=== PATIENT | male | born 1945 | race Caucasian/White ===

== ENCOUNTER 2017-03-16 18:32 | Emergency (ER) | payer MEDICARE, BC ==
[2017-03-16] MEDS ORDERED: amLODIPine TAB* 5 MG PO ONE (19:27)
[2017-03-16 19:41] LABS: ABS Basophils 0 10^3/ul (0-0.2); ABS Eosinophils 0.5 10^3/ul (0-0.6); ABS Lymphocytes 2.7 10^3/ul (1.0-4.8); ABS Monocytes 0.9 10^3/ul (0-0.8); ABS Neutrophils 4.5 10^3/ul (1.5-7.7); ABS Nucleated RBC 0 10^3/ul; Eosinophil % 6.2 % (0-6); Hematocrit 43 % (42-52); Hemoglobin 15.3 g/dl (14.0-18.0); Mean Corpuscular HGB Conc 35 g/dl (31-36); Mean Corpuscular Hemoglobin 33 pg (27-31); Mean Corpuscular Volume 95 fL (80-94); Mean Platelet Volume 7 um3 (7.4-10.4); Nucleated Red Blood Cells % 0.1; Platelet Count 237 10^3/ul (150-450); Red Blood Count 4.59 10^6/ul (4.0-5.4); Red Cell Distribution Width 13 % (10.5-15); White Blood Count 8.8 10^3/ul (3.5-10.8)
[2017-03-16 19:56] LABS: EGFR Non-African American 71.8 (>60)
[2017-03-16 21:21] VITALS: BP 167/68
--- NOTE | 2017-03-16 21:35 | ED ---
Anjali Yuen Thomas, scribed for Keon Ivy on 03/16/17 at 1926 . Hypertension - HPI Summary HPI Summary: The patient is a 71 year old male presenting to the emergency department complaining of elevated blood pressure measured at 228/75 in triage. The patient s blood pressure is typically 130s-140s systolic. He is on Amlodipine, hydrochlorothiazide, and ASA. He does admit to having white coat syndrome. The patient has treated the symptoms with an unspecified tranquilizer prior to arrival. He complains of some neck pain and body aches that he attributes to hiking yesterday. The patient denies chest pain and shortness of breath. - History of Current Complaint Chief Complaint: EDHypertension Stated Complaint: HIGH BLOOD PRESSURE Time Seen by Provider: 03/16/17 19:15 Hx Obtained From: Patient Onset/Duration: Started Hours Ago - earlier today, Still Present Timing: Constant Alleviating Factor(s): Other - Patient took tranquilizer prior to arrival Associated Signs & Symptoms: Negative - SOB, CP Current Medications: Other - ASA, amlodipine, hydrochlorothiazide - Allergies/Home Medications Allergies/Adverse Reactions: Allergies Allergy/AdvReac Type Severity Reaction Status Date / Time No Known Allergies Allergy Verified 11/19/12 19:23 PMH/Surg Hx/FS Hx/Imm Hx Cardiovascular History: Reports: Hx Hypercholesterolemia, Hx Hypertension EENT History: Reports: Hx Hearing Problem Infectious Disease History: No Infectious Disease History: Denies: Traveled Outside the [place] in Last 30 Days - Family History Known Family History: Negative: Hypertension - Social History Lives: With Family Alcohol Use: Weekly Substance Use Type: Reports: None Hx Tobacco Use: No Smoking Status (MU): Never Smoked Tobacco Review of Systems Negative: Fever Negative: Chest Pain Negative: Shortness Of Breath Positive: Other - Body aches, neck pain All Other Systems Reviewed And Are Negative: Yes Physical Exam - Summary Physical Exam Summary: Appearance: Well appearing, no pain distress Skin: warm, dry, reflects adequate perfusion Head/face: normal Eyes: EOMI, MALVIN ENT: normal Neck: supple, non-tender Respiratory: CTA, breath sounds present Cardiovascular: RRR, pulses symmetrical Abdomen: non-tender, soft Bowel: present Musculoskeletal: normal, strength/ROM intact Neuro: normal, sensory motor intact, A&Ox3 Triage Information Reviewed: Yes Vital Signs On Initial Exam: Initial Vitals Temp Pulse Resp BP Pulse Ox 99.0 F 74 18 228/75 99 03/16/17 18:36 03/16/17 18:36 03/16/17 18:36 03/16/17 18:36 03/16/17 18:36 Vital Signs Reviewed: Yes Diagnostics - Vital Signs Vital Signs Temp Pulse Resp BP Pulse Ox 03/16/17 18:36 99.0 F 74 18 228/75 99 - Laboratory Result Diagrams: 03/16/17 19:30 03/16/17 19:30 Lab Statement: Any lab studies that have been ordered have been reviewed, and results considered in the medical decision making process. - EKG 20:00 Cardiac Rate: NL EKG Rhythm: Sinus Rhythm - at 62 BPM EKG Interpretation: No acute changes. Hypertension Course/Dx - Course Assessment/Plan: The patient is a 71 year old male presenting to the emergency department complaining of elevated blood pressure measured at 228/75 in triage. In the ED course the patient was given amlodipine. Bloodwork was obtained. EKG shows sinus rhythm with no acute changes. The patient is diagnosed with hypertension. The patient is instructed to follow up with primary care tomorrow. - Diagnoses Provider Diagnoses: Hypertension Discharge - Discharge Plan Condition: Stable Disposition: HOME Patient Education Materials: Hypertension (ED) Referrals: Berry Arriaza MD [Primary Care Provider] - 1 Day Additional Instructions: Follow up with your primary care physician at your appointment scheduled tomorrow. Return to the emergency department for any new or worsening symptoms. The documentation as recorded by the Anjali degroot Thomas accurately reflects the service I personally performed and the decisions made by Biju ca Emmanuel.
== END 2017-03-16 21:22 | disposition home or self-care (01) ==
LOC: ED 18:32
DX: I10 Essential (primary) hypertension (principal)
CPT/HCPCS: 36415; 80053; 82550; 84484; 85025; 93005; 99282; A9270-GY

== ENCOUNTER 2018-01-19 11:36 | Inpatient (IN) | payer MEDICARE, BC ==
--- NOTE | 2018-01-19 14:17 | ED ---
Shortness of Breath - HPI Summary HPI Summary: Patient is a 72 y/o M w/ c/o SOB and fatigue with exertion. He states that he was carrying a ~18 lbs box of recyclables to his garage. As he returned to his house, he states he was SOB and felt tired. Patient measured his BP himself to be 160s/100s and HR to be 95. He claims his typical HR is between 45-55 BPM. In room, patient has pulse of 120. While lying down in the stretcher, patient states he feels "fine". Patient reports no Sx while walking from his car to ED. Fever, chills, coughing is denied. He reports some palpitations recently, denies pain/swelling in legs but notes some weakness in legs. He notes that he is physically active, claims he goes hiking x3 a week and exercises with 15 lbs weights. Patient states that the last time he went hiking he was somewhat SOB as well. PMHx of respiratory problems is denied. PMHx of raynauds. On triage, pain is denied, nothing is noted to aggravate/alleviate Sx. Home medications and allergies are reviewed. - History of Current Complaint Chief Complaint: EDWeakness Time Seen by Provider: 01/19/18 12:58 Hx Obtained From: Patient Onset/Duration: Lasting Hours - SOB and fatigue with exertion episode this morning, Resolved - states he is fine while lying in stretcher Timing: Intermittent Episodes Lasting: Current Severity: None Dyspnea At: Exertion Aggrevating Factors: Nothing Alleviating Factors: Nothing Associated Signs & Symptoms: Negative - Allergy/Home Medications Allergies/Adverse Reactions: Allergies Allergy/AdvReac Type Severity Reaction Status Date / Time No Known Allergies Allergy Verified 11/19/12 19:23 Home Medications: Home Medications Diazepam TAB(*) [Valium TAB(*)] 5 mg PO BID PRN 01/19/18 [History Confirmed 06/03] Hydrochlorothiazide TAB* [Hydrodiuril TAB*] 25 mg PO DAILY 01/19/18 [History Confirmed 01/19/18] amLODIPine TAB* [Norvasc 5 mg TAB*] 2.5 mg PO DAILY 01/19/18 [History Confirmed 01/19/18] PMH/Surg Hx/FS Hx/Imm Hx Cardiovascular History: Reports: Hx Hypercholesterolemia, Hx Hypertension Sensory History: Reports: Hx Hearing Problem Infectious Disease History: No Infectious Disease History: Denies: Traveled Outside the [place] in Last 30 Days - Family History Known Family History: Negative: Hypertension - Social History Alcohol Use: Weekly Substance Use Type: Reports: None Hx Tobacco Use: No Smoking Status (MU): Never Smoked Tobacco Review of Systems Positive: Fatigue. Negative: Fever, Chills Positive: Palpitations Positive: Shortness Of Breath. Negative: Cough Positive: Other - NEGATIVE: BLE PAIN . Negative: Edema Positive: Weakness - BLE All Other Systems Reviewed And Are Negative: Yes Physical Exam - Summary Physical Exam Summary: Appearance: Well-appearing, Well-nourished, lying in bed comfortably Skin: Warm, dry, no obvious rash Eyes: sclera anicteric, no conjunctival pallor ENT: mucous membranes moist, pharynx appears normal Neck: Supple, nontender Respiratory: Clear to auscultation, no signs of respiratory distress Cardiovascular: Tachycardic; Normal S1, S2. No murmurs. Normal distal pulses in tibial and radial bilaterally. Abdomen: Soft, nontender, normal active bowel sounds present Musculoskeletal: Normal, Strength/ROM Intact Neurological: A&Ox3, awake and alert, mentation is normal, speech is fluent and appropriate Psychiatric: affect is normal, does not appear anxious or depressed Triage Information Reviewed: Yes Vital Signs On Initial Exam: Initial Vitals Temp Pulse Resp BP Pulse Ox 98.1 F 110 18 165/122 95 01/19/18 11:40 01/19/18 11:40 01/19/18 11:40 01/19/18 11:40 01/19/18 11:40 Vital Signs Reviewed: Yes Diagnostics - Vital Signs Vital Signs Temp Pulse Resp BP Pulse Ox 01/19/18 11:40 98.1 F 110 18 165/122 95 - Laboratory Result Diagrams: 01/20/18 04:28 01/19/18 18:00 Lab Statement: Any lab studies that have been ordered have been reviewed, and results considered in the medical decision making process. - Radiology CXR Radiology Interpretation Completed By: Radiologist Summary of Radiographic Findings: CXR IMPRESSION: THERE IS THE APPEARANCE OF AN ASYMMETRIC 2.8 CM DENSITY OVERLYING THE RIGHT HILUM RELATIVE. TO THE LEFT. THIS MAY SIMPLY BE A CONFLUENCE OF HILAR VESSELS BUT THERE ARE NO PRIOR CHEST. X-RAYS AVAILABLE FOR COMPARISON TO COMMENT ON CHRONICITY. SUPERIOR CHARACTERIZATION CAN BE. MADE WITH CT OF THE CHEST PARTICULARLY IF THE PATIENT IS SYMPTOMATIC AND/OR HAS RISK. FACTORS FOR NEOPLASM. THIS REPORT WAS REVIEWED BY ED PHYSICIAN. - CT CTA CHEST/THORAX CT Interpretation Completed By: Radiologist Summary of CT Findings: CTA CHEST/THORAX IMPRESSION: Multiple large pulmonary emboli are noted. Right main pulmonary artery filling. defects are noted as well as left lower lobe pulmonary artery filling defects are noted. This report was reviewed by ED physician. - EKG 1255 Cardiac Rate: Tachycardia - rate of 109 BPM EKG Rhythm: Sinus Tachycardia Summary of EKG Findings: Sinus tachycardia at 109 BPM, P waves, QRS complex, and T waves are within normal limits, T waves and intervals are normal, no ischemic changes. Re-Evaluation - Re-Evaluation First Eval Re-Evaluation Time: 15:17 Comment: Results of labs and tests so far were discussed, patient is agreeable with admission if needed. Course/Dx - Course Course Of Treatment: Patient is a 72 y/o M w/ c/o SOB and fatigue with exertion. He states that he was carrying a ~18 lbs box of recyclables to his garage. As he returned to his house, he states he was SOB and felt tired. Patient measured his BP himself to be 160s/100s and HR to be 95. He claims his typical HR is between 45-55 BPM. In room, patient has pulse of 120. While lying down in the stretcher, patient states he feels "fine". Patient reports no Sx while walking from his car to ED. Fever, chills, coughing is denied. He reports some palpitations recently, denies pain/swelling in legs but notes some weakness in legs. He notes that he is physically active, claims he goes hiking x3 a week and exercises with 15 lbs weights. Patient states that the last time he went hiking he was somewhat SOB as well. PMHx of respiratory problems is denied. PMHx of raynauds. On physical exam, patient is noted to be tachycardic. CXR IMPRESSION: THERE IS THE APPEARANCE OF AN ASYMMETRIC 2.8 CM DENSITY OVERLYING THE RIGHT HILUM RELATIVE. TO THE LEFT. THIS MAY SIMPLY BE A CONFLUENCE OF HILAR VESSELS BUT THERE ARE NO PRIOR CHEST. X-RAYS AVAILABLE FOR COMPARISON TO COMMENT ON CHRONICITY. SUPERIOR CHARACTERIZATION CAN BE. MADE WITH CT OF THE CHEST PARTICULARLY IF THE PATIENT IS SYMPTOMATIC AND/OR HAS RISK. FACTORS FOR NEOPLASM. EKG: Sinus tachycardia at 109 BPM, P waves, QRS complex, and T waves are within normal limits, T waves and intervals are normal , no ischemic changes. Labs showed WBC 11.8, MCH 33, absolute neuts 8.6, absolute monos 1, D-Dimer > 1050, chloride 99, glucose 137, lactic acid 1.5, total bilirubin 1.1. Influenza A, B were negative. Trop was 0.37. CTA CHEST/ THORAX IMPRESSION: Multiple large pulmonary emboli are noted. Right main pulmonary artery filling. defects are noted as well as left lower lobe pulmonary artery filling defects are noted. Patient's case was discussed with Dr. Ortiz, Dr. Ortiz accepts patient for admission. Patient agreeable with admission. - Diagnoses Provider Diagnoses: Pulmonary embolism - Physician Notifications Discussed Care of Patient With: Leena Ortiz Time Discussed With Above Provider: 16:22 Instructed by Provider To: Other - Patient's case was discussed with Dr. Ortiz , Dr. Ortiz accepts patient for admission. - Critical Care Time Critical Care Time: 30-74 min - 30 minutes of critical care time due to 72-year- old man with bilateral extensive pulmonary emboli and signs of sub massive PE with elevated troponin indicating right heart strain. Discharge - Sign-Out/Discharge Documenting (check all that apply): Patient Departure - admit - Discharge Plan Condition: Good Disposition: ADMITTED TO [facility] - Billing Disposition and Condition Condition: GOOD Disposition: Admitted to [facility] - Attestation Statements Document Initiated by Amanda: Yes Documenting Ginetteibe: VIDAL MCFARLANE Provider For Whom Amanda is Documenting (Include Credential): KEYANA PEACE MD Scribhattie Attestation: VIDAL Yuen , scribed for KEYANA PEACE MD on 01/20/18 at 1011. Scribe Documentation Reviewed: Yes Provider Attestation: The documentation as recorded by the VIDAL degroot accurately reflects the service I personally performed and the decisions made by me, KEYANA PEACE MD Status of Scribe Document: Viewed
[2018-01-19 14:39] LABS: ABS Basophils 0.1 10^3/ul (0-0.2); ABS Eosinophils 0.2 10^3/ul (0-0.6); ABS Lymphocytes 1.9 10^3/ul (1.0-4.8); ABS Neutrophils 8.6 10^3/ul (1.5-7.7); ABS Nucleated RBC 0 10^3/ul; Eosinophil % 1.7 %; Hematocrit 48 % (42-52); Hemoglobin 16.8 g/dl (14.0-18.0); Lymphocyte % 16.3 %; Mean Corpuscular HGB Conc 35 g/dl (31-36); Mean Corpuscular Hemoglobin 33 pg (27-31); Mean Corpuscular Volume 93 fL (80-94); Mean Platelet Volume 7.5 fL (7.4-10.4); Nucleated Red Blood Cells % 0.3; Platelet Count 241 10^3/ul (150-450); Red Blood Count 5.13 10^6/ul (4.00-5.40); Red Cell Distribution Width 14 % (10.5-15); White Blood Count 11.8 10^3/ul (3.5-10.8)
[2018-01-19 14:56] LABS: EGFR Non-African American 78.7 (>60)
[2018-01-19] MEDS ORDERED: Iohexol 350* (CONTRAST) 500 ML MDV IV ONE (15:18)
[2018-01-19] MEDS ORDERED: Diazepam TAB(*) 5 MG PO PRN (16:48)
[2018-01-19] MEDS ORDERED: Acetaminophen TAB* 325 MG PO PRN (16:58)
[2018-01-19] MEDS ORDERED: Heparin VIAL(*) 5000 UNITS/ML VIAL (FIVE THOUSAND) IV SCH (17:00)
[2018-01-19] MEDS: Heparin DRIP 25,000 UNITS(*) 25,000 UNITS/500 ML BAG IV SCH (17:16)
[2018-01-19 18:20] LABS: ABS Basophils 0.1 10^3/ul (0-0.2); ABS Eosinophils 0.2 10^3/ul (0-0.6); ABS Lymphocytes 2.1 10^3/ul (1.0-4.8); ABS Monocytes 1.2 10^3/ul (0-0.8); ABS Neutrophils 11.1 10^3/ul (1.5-7.7); ABS Nucleated RBC 0 10^3/ul; Eosinophil % 1.2 %; Hematocrit 48 % (42-52); Mean Corpuscular HGB Conc 36 g/dl (31-36); Mean Corpuscular Hemoglobin 33 pg (27-31); Mean Corpuscular Volume 93 fL (80-94); Mean Platelet Volume 7.9 fL (7.4-10.4); Nucleated Red Blood Cells % 0; Platelet Count 261 10^3/ul (150-450); Red Blood Count 5.14 10^6/ul (4.00-5.40); Red Cell Distribution Width 14 % (10.5-15); White Blood Count 14.7 10^3/ul (3.5-10.8)
[2018-01-19 18:44] LABS: EGFR Non-African American 92.1 (>60)
--- NOTE | 2018-01-19 18:56 | PN ---
Progress Note - Progress Note Date of Service: 01/19/18 Note: Pt's Doppler is positive for R femoral DVT.
--- NOTE | 2018-01-20 02:32 | HP ---
CC: Dr. Berry Arriaza; Dr. Aj Rollins * HISTORY AND PHYSICAL: DATE OF ADMISSION: 01/19/18 TIME OF EVALUATION: 5 p.m. PRIMARY CARE PROVIDER: Dr. Berry Arriaza. CONSULTING BASKET HAND BRAIDER: Dr. Aj Rollins. CHIEF COMPLAINT: Shortness of breath. HISTORY OF PRESENT ILLNESS: Mr. Jennings is a 72-year-old male with a past medical history of hypertension, who present to the emergency room with complaints of shortness of breath. He states he was in his usual state of health until a couple of days ago when he went into usual hike and felt more short of breath than usual. He states that he is usually able to do that route easily and yesterday it felt like headache for him. He went back home, rested, felt better and today he was moving a 18-pound box of recyclable to his garage and he states that he felt "wiped out." This is another activity that is usually very easy for him. He complained of palpitations, felt a little headed, was short of breath. He rested, measured his blood pressure and was reportedly 160/100 and his heart rate was 95. He states later on he tried to clean his cat's litter box and was unable to do so due to severe dyspnea. He denies chest pain. There is no history of any recent trip. He states that he's been in [place] for the past 9 years and has not even gone to [place]. He denies fever, chills, cough, and hemoptysis. Denies any similar prior symptoms. PAST MEDICAL HISTORY: Hypertension. PAST SURGICAL HISTORY: Status post tonsillectomy. MEDICATION LIST: As follow: 1. Amlodipine 2.5 mg p.o. daily. 2. Diazepam 5 mg p.o. b.i.d. as needed for anxiety. 3. Hydrochlorothiazide 25 mg p.o. daily. ALLERGIES: No known drug allergies. FAMILY HISTORY: Mother had a history of colon cancer and in her 70s. Father had a history of hypertension and heart disease. SOCIAL HISTORY: The patient denies tobacco or any drug use. He drinks socially. 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 Surrogate decision maker is his , Hali Roldan, phone number is [phone]. REVIEW OF SYSTEMS: A 14-point review of systems was performed and all the pertinent negative and positive findings are in the HPI. PHYSICAL EXAMINATION GENERAL: The patient is a pleasant elderly gentleman, who is sitting up in the ED stretcher, in no acute distress. VITAL SIGNS: Temperature 98.1, heart rate is 113, respiratory rate is 16, oxygen saturation is 94% on room air, blood pressure is 161/97. HEENT: Pupils are equal. Moist mucous membranes. CHEST: Breath sounds bilaterally with no added sounds. CVS: Normal S1, S2. Regular rate and rhythm. ABDOMEN: Obese, soft, bowel sounds are present. EXTREMITIES: No edema. No calf tenderness. NEUROLOGIC: He is alert and oriented x3. Able to move all 4 extremities. LABORATORY AND IMAGING DATA: The patient had a CBC that showed a WBC of 11.8, hemoglobin of 16.8, hematocrit 48, platelets of 241 and 72% neutrophils. D- dimer was greater than the 1050. Chemistry showed a sodium of 135, potassium of 5, chloride 99, bicarb 27, BUN 15, creatinine 0.94, glucose of 137, potassium 4.5, calcium of 10. LFTs showed a slight elevation of total bilirubin of 1.1. Initial troponin was 0.37 and followup 0.67, CEA was 1.5 and PSA was 1.8. Rapid influenza was negative. Chest x-ray showed the appearance of an asymmetric 2.8 cm density overlying the right hilum relative to the left. That may be secondary to confluence of hilar vessels, but there are no prior chest x-rays available for comparison. Superior characterization can be made with CT of the chest, particularly if the patient is symptomatic and/or has risk factors for neoplasm. CTA of the chest revealed multiple large pulmonary emboli. Right main pulmonary artery filling defects are noted as well as left lower lobe pulmonary coronary artery filling defect. Lower extremity Doppler was positive for DVT in the distal right femoral vein. EKG done on 01/19/18 at 12:51 p.m. showed sinus tachycardia at 109 beats per minute with PVCs, flat Ts in III and aVF and those are new when compared to his prior EKG from February 2017. ASSESSMENT AND PLAN: Mr. Jennings is a 72-year-old male with a past medical history of hypertension, who presents to the emergency room with complaints of exertional dyspnea, found to have bilateral pulmonary embolism. 1. Pulmonary embolism/deep venous thrombosis. This is an unprovoked episode of pulmonary embolism and deep venous thrombosis. The patient has no history of recent surgeries, recent trip and he does have a family history of colon cancer. He states that he never had a colonoscopy. Per his description, he probably had a sigmoidoscopy only. His CEA and PSA are normal. Although, he has bilateral pulmonary embolism including his like right main pulmonary artery , his vital signs are stable and considering the magnitude of the findings on his CT, his symptoms are mild. At this point, CTA is not indicated. He will be started on a heparin drip and a Hematology consultation was requested with Dr. Rolilns to see what other workup would be warranted for his unprovoked pulmonary embolism and deep venous thrombosis. After this consultation, we may discuss switching from heparin to a NOAC probably apixaban. The patient will have an echocardiogram to assess for RV strain. His troponin elevation is secondary to pulmonary embolism and we are going to trend it until peak. At the time of this dictation, a CA 19-9 level is pending. 2. Hypertension is controlled. I am going to continue his amlodipine and diazepam. I am holding his hydrochlorothiazide for now. 3. DVT prophylaxis. The patient is on a heparin drip. 4. Code status was discussed with the patient, wishes to be a full code. TIME SPENT: Approximately 65 minutes were spent with patient interview, medical records review, physical examination to complete this admission, more than half of this time was spent [id number] with the patient in coordination of care. [id number]/[facility] #: [id number] VERA
[2018-01-20 05:12] LABS: ABS Basophils 0.1 10^3/ul (0-0.2); ABS Eosinophils 0.2 10^3/ul (0-0.6); ABS Lymphocytes 2.5 10^3/ul (1.0-4.8); ABS Monocytes 1.3 10^3/ul (0-0.8); ABS Neutrophils 10.4 10^3/ul (1.5-7.7); ABS Nucleated RBC 0 10^3/ul; Eosinophil % 1.6 %; Hematocrit 46 % (42-52); Hemoglobin 15.9 g/dl (14.0-18.0); Lymphocyte % 17.3 %; Mean Corpuscular HGB Conc 35 g/dl (31-36); Mean Corpuscular Hemoglobin 33 pg (27-31); Mean Corpuscular Volume 94 fL (80-94); Mean Platelet Volume 8.3 fL (7.4-10.4); Nucleated Red Blood Cells % 0.2; Platelet Count 243 10^3/ul (150-450); Red Cell Distribution Width 14 % (10.5-15); White Blood Count 14.5 10^3/ul (3.5-10.8)
[2018-01-20] MEDS: amLODIPine TAB* 5 MG PO SCH (08:42)
[2018-01-20] MEDS: Heparin DRIP 25,000 UNITS(*) 25,000 UNITS/500 ML BAG IV SCH (11:00)
--- NOTE | 2018-01-20 14:30 | ECHO ---
Patient: FAWAD CLAYTON [facility] Rec#: [id number] : 1945 Date: 01/20/2018 Age: 72y Height: 180 cm / 70.9 in Weight: 93.4 kg / 205.9 lbs Sex: M BSA: 2.13 Room#: [facility] Admit Date#: 01/19/2018 Type: Inpatient Referring: Leena Henriquez MD Reading: Gisel Rosario MD Marketing Assistant Retail Division: Leti KwongDIGNA CC: Berry Arriaza MD Transthoracic Echocardiogram Indication: Pulmonary Embolism BP: 145/86 HR: 84 Rhythm: NSR Findings History: HTN Technical Comments: The study quality is fair. Completed at 0850. Left Ventricle: The left ventricular chamber size is normal. Mild to moderate concentric left ventricular hypertrophy is observed. Left ventricular systolic function is at the lower limits of normal. The estimated ejection fraction is 50-55%. There is septal flattening of the interventricular septum consistent with right ventricular volume or pressure overload. Abnormal left ventricular diastolic function is observed. There is an E to A reversal in the mitral valve flow pattern suggestive of diastolic dysfunction. Left Atrium: The left atrial chamber size is normal. Right Ventricle: Moderator Band present. The right ventricle is severely dilated. The right ventricular global systolic function is severely reduced.Only the very base contracts. Right Atrium: The right atrium is moderate to severely dilated. Aortic Valve: The aortic valve is trileaflet. The aortic valve leaflets are mildly thickened. There is a trace of aortic regurgitation. There is no evidence of aortic stenosis. Mitral Valve: The mitral valve leaflets are mildly thickened. There is a trace of mitral regurgitation. There is no evidence of mitral stenosis. Tricuspid Valve: The tricuspid valve leaflets are mildly thickened. There is mild tricuspid regurgitation. The right ventricular systolic pressure is estimated at 28 mmHg. There is evidence that pulmonary hypertension may be underestimated. There is no tricuspid stenosis. Pulmonic Valve: The pulmonic valve appears normal. There is a trace pulmonic regurgitation. There is no pulmonic stenosis. Pericardium: There is no significant pericardial effusion. A pericardial fat pad is visualized. Aorta: There is no dilatation of the ascending aorta. There is no dilatation of the aortic arch. The aortic root is normal in size. Pulmonary Artery: The main pulmonary artery is not well visualized. Venous: The inferior vena cava appears normal in size. There is a greater than 50% respiratory change in the inferior vena cava dimension. Conclusions Mild to moderate concentric left ventricular hypertrophy is observed. There is septal flattening of the interventricular septum consistent with right ventricular volume or pressure overload. The estimated ejection fraction is 50-55%. Abnormal left ventricular diastolic function is observed. The right ventricle is severely dilated with severely abnormal systolic function. The aortic valve leaflets are mildly thickened with trace aortic regurgitation. There is a trace of mitral regurgitation. There is mild tricuspid regurgitation. The right ventricular systolic pressure is estimated at 28 mmHg, likely underestimated. No prior echo to compare. Measurements Name Value Normal Range RVIDd (AP) 2D 4.5 cm (0.9 - 2.6) RVDdMajor (2D) 6.1 cm (2.2 - 4.4) RAd ISD 4CH 6 cm (3.4 - 4.9) RA (A4C)W 4.7 cm (2.9 - 4.6) IVSd (2D) 1.3 cm (0.6 - 1) LVPWd (2D) 1.2 cm (0.6 - 1) LVIDd (2D) 3.6 cm (3.6 - 5.4) LVIDs (2D) 2.9 cm - LV FS (2D) 21 % (25 - 45) Aortic Annulus 2.1 cm (1.4 - 2.6) Ao root diameter (2D) 3.3 cm (2.1 - 3.5) Ascending Ao 3.4 cm (2.1 - 3.4) Aortic arch 2.3 cm (1.8 - 3.4) LA dimension (AP) 2D 3.5 cm (2.3 - 3.8) LAd ISD 4CH 4.9 cm (2.9 - 5.3) LA ISD 4CH W 3.8 cm (2.5 - 4.5) Name Value Normal Range LA ESV BP (A/L) index 25 ml/m2 - Name Value Normal Range MV E-wave Vmax 0.3 m/sec - MV deceleration time 232 msec - MV A-wave Vmax 0.7 m/sec - MV E:A ratio 0.4 ratio - LV septal e' Vmax 0.06 m/sec - LV lateral e' Vmax 0.04 m/sec - LV E:e' septal ratio 5 ratio - LV E:e' lateral ratio 7.5 ratio - Name Value Normal Range AV Vmax 1 m/sec - AV VTI 20 cm - AV peak gradient 4 mmHg - AV mean gradient 2 mmHg - LVOT Vmax 0.8 m/sec - LVOT VTI 11 cm - LVOT peak gradient 2 mmHg - LVOT mean gradient 1 mmHg - ANATOLY Vmax 0.5 m/sec - Name Value Normal Range TR Vmax 2.5 m/sec - TR peak gradient 25 mmHg - RAP 3 mmHg - RVSP 28 mmHg - IVC diameter 1.8 cm - Name Value Normal Range PV Vmax 0.9 m/sec - PV peak gradient 4 mmHg -
--- NOTE | 2018-01-20 15:59 | PN ---
Subjective Date of Service: 01/20/18 Interval History: HOSPITALIST PROGRESS NOTE Patient seen and examined at bedside. Care reviewed and d/w Marianne Gandara RN. He feels much improved today. No further episodes of chest pressure, no dyspnea , but has only ambulated in his room. Point to the heparin drip and tells me "whatever you giving me there is working fine". No significant arrhythmias on Telemetry. Family History: Unchanged from Admission Social History: Unchanged from Admission Past Medical History: Unchanged from Admission Objective Active Medications: Acetaminophen (Tylenol Tab*) 650 mg PO Q6H PRN PRN Reason: pain/fever Amlodipine Besylate (Norvasc Tab*) 2.5 mg PO DAILY [facility] Last Admin: 01/20/18 08:42 Dose: 2.5 mg Diazepam (Valium Tab(*)) 5 mg PO BID PRN PRN Reason: ANXIETY Heparin Sodium (Porcine) (Heparin Vial(*)) 0 units IV .PER PROTOCOL [facility] Last Admin: 01/19/18 17:15 Dose: 7,000 units Heparin Sodium/Dextrose (Heparin Drip 25,000 Units(*)) 25,000 units in 500 mls @ 0 mls/hr IV PER RATE [facility]; Protocol Last Admin: 01/20/18 11:00 Dose: 27 mls/hr Vital Signs - 8 hr 01/20/18 01/20/18 11:50 15:21 Temperature 98.6 F Pulse Rate 79 85 Respiratory 18 Rate Blood Pressure 110/74 (mmHg) O2 Sat by Pulse 97 96 Oximetry Oxygen Devices in Use Now: None Appearance: Pleasant gentleman sitting up in bed in [facility]. Eyes: No Scleral Icterus Ears/Nose/Mouth/Throat: Mucous Membranes Moist Neck: Trachea Midline Respiratory: Symmetrical Chest Expansion and Respiratory Effort, Clear to Auscultation Cardiovascular: NL Sounds; No Murmurs; No JVD, RRR Abdominal: NL Sounds; No Tenderness; No Distention Extremities: No Edema Neurological: Alert and Oriented x 3, NL Muscle Strength and Tone Result Diagrams: 01/20/18 04:28 01/19/18 18:00 Assess/Plan/Problems-Billing Assessment: Mr Farr is a 72yo M with PMH of HTN, who presents to ED with c/o chest pressure and dyspnea, found to have PE/DVT. - Patient Problems (1) Pulmonary embolism Comment: - Unprovoked episode. - Echo shows severe RV dysfunction, but clinically he is much improved, with minimal symptoms. - D/w Hematology - although he has significant clot burden with RV dysfunction, his paucity of symptoms argues against tPA use. D/w patient, reviewed risks, benefits and alternatives. Plan is to transition from heparin to Apixaban. - Will need repeat echo in 4 weeks and f/u with Dr Castellano in 3 months. (2) DVT (deep venous thrombosis) Comment: - LE doppler revealed distal right femoral vein DVT. - Transition from heparin to Apixaban. (3) HTN (hypertension) Comment: - Controlled with amlodipine. - HCTZ on hold for now as he can use the extra volume. (4) DVT prophylaxis Comment: - Heparin drip - will transition to Apixaban. (5) Full code status Status and Disposition: Inpatient. Anticipate d/c in AM if he continues to improve.
[2018-01-20] MEDS: Apixaban* 5 MG TAB PO SCH (19:56)
--- NOTE | 2018-01-20 21:38 | CONS ---
CC: Dr. Berry Arriaza.* ONCOLOGY/HEMATOLOGY CONSULTATION REPORT: DATE OF CONSULT: 01/20/18 REASON FOR CONSULTATION: Pulmonary embolism. HISTORY OF PRESENT ILLNESS: Mr. Jennings is a 72-year-old male who reports that he had been more short of breath when going on his usual hikes over the past several days. He was moving a fairly heavy box of recyclable paper to his garage on the day of admission and felt "totally wiped out." He developed some palpitations along with this, was dizzy, lightheaded, and short of breath. He reports that his blood pressure was elevated to 160/110 and his pulse rate was also about 110. He later became even more short of breath with just trying to clean a litter box for his cat. He denies any associated chest pain or any leg symptoms. He denies any previous similar episodes in the past. PAST MEDICAL HISTORY: Hypertension, anxiety, status post tonsillectomy as a child. MEDICATIONS: 1. Amlodipine 2.5 mg daily. 2. Diazepam 5 mg b.i.d. p.r.n. 3. Hydrochlorothiazide 25 mg daily. ALLERGIES: None. FAMILY HISTORY: Mother had rectal cancer and at age 75. Father at age 85 with hypertension and heart disease. No clotting issues or cancer in his maternal half siblings, has no knowledge of family beyond that. 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 No alcohol or drug use. Occasional alcohol. About 1 glass of wine per day. He is seen with his , Hali in the room. REVIEW OF SYSTEMS: Energy level has been good until recently, weight stable, appetite good. No significant change in bowel or bladder habits. No significant neurologic complaints. No significant underlying heart or lung issues. Does report that when he walks, he uses 2 walking sticks to maintain his balance and his reports this is not quite as good as it was in the past , although they do hike longer distances. He has never had a colonoscopy. Has Raynaud's, which is worse in the cold weather. Last saw Dr. Arriaza about 6 weeks ago. Review of systems otherwise negative except as discussed above. PHYSICAL EXAM: A 72-year-old male in no acute distress. Vital Signs: Stable, afebrile. HEENT: PERRL. EOMI. No erythema or exudates. No palpable cervical , supraclavicular, axillary adenopathy. Lungs: Clear. Heart: Regular rate and rhythm without murmurs, rubs or gallops. Abdomen: Soft, nontender without masses or organomegaly. Extremities: No edema. Back: No CVA or spinal tenderness. Neurologic exam without focal deficits. LABORATORY STUDIES: CBC with a white count of 11,800, hemoglobin 16.8, hematocrit 48, and platelet count 241,000. D-dimer is elevated to greater than the 1050. Since admission, H and H have not significantly changed. Chemistry studies without significant abnormalities. Troponins have been elevated, but are now trending downwards with a peak troponin of 0.67 at 6 p.m. last night and now down to 0.48. Markers including CEA at 1.5 and PSA at 1.8, have been obtained. CT scan of the chest reveals pulmonary emboli, which are large with a right mainstem pulmonary artery with significant filling defects as well as a left lower lobe pulmonary artery filling defect noted. Multiple small pulmonary nodules are seen bilaterally up to about 2 to 3 mm in both lungs. There are no older films to compare to. IMPRESSION: A 72-year-old male with large pulmonary emboli. Subsequent to my visit with the patient, it has come to my attention that his echocardiogram did reveal a severely dilated right ventricle with right ventricular global systolic function severely reduced. Reportedly, only the very base contracts. Left ventricle with mild concentric hypertrophy and septal flattening with ejection fraction at 50% to 55%. This patient had an unprovoked pulmonary embolism in the setting of his usual activity level. He currently reports being markedly improved in terms of his breathing and his overall sense of wellbeing from yesterday since being started on Lovenox. I do not believe therefore that there is any significant indication for the use of tPA. Decision on length of anticoagulation will need to be made in the future. Standard for an unprovoked clot would be lifelong anticoagulation at this time, especially for a clot this size; however, this will have to be balanced with his bleeding risks and he does hike significant distance requiring cane and we will have to decide if he has significant bleeding issue before coming with a final recommendation for length of anticoagulation. I do not believe that there is any role for hypercoagulable workup in this setting as lifelong anticoagulation is going to be the recommendation unless there is a contraindication. There is no role for cancer screening above or beyond that for general population otherwise recommended screening. He has never had a colonoscopy and this would be recommended to him at some point. There is no significant role for CT scans to complete the abdomen and pelvis. At some point, a repeat CT scan of the chest is likely in order to follow up on the small pulmonary nodule seen. [id number]/[facility] #: [id number] VERA
[2018-01-21] MEDS: Apixaban* 5 MG TAB PO SCH (08:54)
[2018-01-21] MEDS: amLODIPine TAB* 5 MG PO SCH (08:54)
[2018-01-21 12:45] VITALS: BP 155/82
--- NOTE | 2018-01-22 08:05 | DS ---
CC: Dr. Arriaza; Dr. Castellano.* DISCHARGE SUMMARY: DATE OF ADMISSION: 01/19/18 DATE OF DISCHARGE: 01/21/18 PRIMARY CARE PROVIDER: Dr. Arriaza. TOXICOLOGY SUPERVISOR: Dr. Castellano. PRINCIPAL DIAGNOSIS: Submassive pulmonary embolism. SECONDARY DIAGNOSIS: Hypertension. DISCHARGE MEDICATIONS: 1. Eliquis 10 mg p.o. twice daily through 01/26/18, then decrease to 5 mg twice daily. 2. Hydrochlorothiazide 25 mg p.o. daily. 3. Amlodipine 2.5 mg p.o. daily. 4. Diazepam 5 mg p.o. b.i.d. p.r.n. anxiety. HOSPITAL COURSE: Mr. Jennings is a 72-year-old male with a history of hypertension, who presented to the emergency room on 01/19/18 with complaints of shortness of breath. The patient describes this as severe dyspnea with minimal exertion. There was no chest pain. He was found to have a submassive pulmonary embolism. This was felt to be unprovoked. Lower extremity Doppler was also positive for DVT in the distal right femoral vein. The patient underwent a transthoracic echocardiogram, which revealed severely dilated right ventricle with severely abnormal systolic function. The patient despite this was relatively asymptomatic after being initiated on anticoagulation. The patient was seen in consultation on 01/20/[address] Castellano. He believes that the patient likely will need lifelong anticoagulation; however, the patient may have an increased bleeding risk due to activities that he performs while healthy and therefore, length of anticoagulation duration will need to be determined as an outpatient. Dr. Castellano did not recommend a hypercoagulable workup again, as lifelong anticoagulation will likely be the recommendation. He also felt there was no role for cancer screening above or beyond that for the general population. The patient will need a followup echocardiogram in approximately 1 month. Additionally, he will need to follow up with Dr. Castellano on 04/16/18 at 11:20 a.m. The patient has been instructed the importance of continuing his Eliquis and making sure that he takes his every 12 hours as prescribed. The patient voices understanding. He has also been instructed to return to the emergency room if he has any sudden onset of chest pain, shortness of breath, or uncontrolled bleeding. On the day of discharge, the patient is awake, alert, and oriented, sitting up in bed, in no acute distress. His cardiac exam reveals a normal S1, S2 with a regular rate and rhythm. His lungs are clear. His abdomen is soft, nontender, nondistended. His vital signs are stable with a blood pressure of 155/82, pulse of 95, respiratory rate of 18, and temp of 98.2. He is 97% on room air. At this point, the patient is felt to be stable for discharge home. FOLLOWUP CONCERNS: The patient is being discharged home today, 01/21/18. ACTIVITY LEVEL: As tolerated. DIET: Regular. CONDITION ON DISCHARGE: Stable. TIME SPENT: Thirty five minutes was spent discharging this patient. [id number]/[facility] #: [id number] VERA
== END 2018-01-21 15:00 | disposition home or self-care (01) | DRG 176 ==
LOC: ED 11:36 → MEDTELE 16:45
PROVIDERS: ADMIT Internal Medicine; ATTEND Hospitalist
DX: I26.99 Other pulmonary embolism without acute cor pulmonale (principal); I82.411 Acute embolism and thrombosis of right femoral vein; I10 Essential (primary) hypertension; R00.0 Tachycardia, unspecified; F41.9 Anxiety disorder, unspecified; E78.00 Pure hypercholesterolemia, unspecified; Z79.01 Long term (current) use of anticoagulants; Z82.49 Family history of ischemic heart disease and other diseases of the circulatory system; Z80.0 Family history of malignant neoplasm of digestive organs; Z72.89 Other problems related to lifestyle
CPT/HCPCS: 36415; 71046; 71275; 80053; 82378; 82565; 83605; 84153; 84484; 84520; 85025; 85379; 85730; 86301; 93005; 93306; 93970; 99284; A9270-GY; G0103; J1644; Q9967